=== PATIENT | male | born 1980 | race Caucasian/White ===

== ENCOUNTER 2018-07-11 05:41 | Inpatient (IN) | payer MEDICARE, OTHER ==
[2018-07-11] MEDS: SODIUM CHLORIDE 0.9% 1L BAG IV* (05:52)
[2018-07-11 06:02] LABS: ADD MAN DIFF? NO
[2018-07-11] MEDS: DOPamine-D5W 1.6 MG/ML 250 ML IV ×4 (06:07→23:41)
[2018-07-11 06:09] LABS: WHITE BLOOD COUNT 16.4 10^3/ul (4.8-10.8)
[2018-07-11 06:09] LABS: ABNORMAL IP MESSAGE 1; BASOPHIL # 0.2 10^3/ul (0.0-0.1); BASOPHILS % 0.9 % (0.0-2.0); EOSINOPHILS # 0.1 10^3/ul (0.0-0.5); EOSINOPHILS % 0.8 % (0.0-7.0); HEMATOCRIT 49.4 % (42.0-52.0); HEMOGLOBIN 14.2 g/dl (14.0-18.0); LYMPHOCYTES # 7.2 10^3/ul (0.8-2.9); LYMPHOCYTES % 43.8 % (15.0-51.0); MEAN CORPUSCULAR HEMOGLOBIN 27.6 pg (29.0-33.0); MEAN CORPUSCULAR HGB CONC 28.7 g/dl (32.0-37.0); MEAN CORPUSCULAR VOLUME 96.1 fl (82.0-101.0); MONOCYTE # 0.7 10^3/ul (0.3-0.9); NEUTROPHILS % 42.3 % (39.0-77.0); NUCLEATED RED BLOOD CELLS # 0.1 10^3/ul (0.0-0.0); NUCLEATED RED BLOOD CELLS% 0.7 /100WBC (0.0-0.0); PLATELET COUNT 191 10^3/UL (140-415); POSITIVE DIFF @See below; RED BLOOD COUNT 5.14 10^6/ul (4.70-6.10); RED CELL DISTRIBUTION WIDTH 13.6 % (11.5-14.5)
[2018-07-11] MEDS: FENTAnyl 50 MCG/ML VIAL IV (06:09)
[2018-07-11] MEDS ORDERED: VECURONIUM 100 MG in DEXTROSE 5% 100 ML IV (06:09)
[2018-07-11] MEDS: SODIUM CHLORIDE 0.9% 500 ML BAG IV* (06:09)
[2018-07-11 06:18] LABS: INR 1.55; PROTIME 18.7 Sec (11.9-14.9); PT RATIO 1.5
[2018-07-11] MEDS: VECURONIUM 10 MG VIAL IV (06:30)
[2018-07-11 06:32] LABS: Allen Test ACCEPTAB; Arterial Base Excess -25.8 mmol/L (-3.0-3); Arterial Blood Gas Oxygen Sat 98.5 mmHG (95.0-98.0); Arterial COHb 8.1 % (0.0-3.0); Arterial Fraction of Oxyhgb 90.1 % (93.0-99.0); Arterial MetHb 0.4 % (0.0-1.5); Arterial pCO2 79.8 mmhg (35-45); Blood Gas Low PEEP Setting 0 cmH2O; MODE VENT - AC; Site Right Radial
[2018-07-11 06:34] LABS: PARTIAL THROMBOPLASTIN TIME 86.9 Sec (23.0-35.0)
[2018-07-11] MEDS ORDERED: IPRATROPIUM (HFA) 12.9 GM INHALER INH (07:00)
[2018-07-11] MEDS ORDERED: ALBUTEROL HFA 8 GM INHALER INH (07:00)
[2018-07-11] MEDS ORDERED: CA CHLORIDE 10% 10 ML SYRINGE (07:00)
[2018-07-11] MEDS ORDERED: EPINEPHrine 0.1 MG/ML SYG (07:00)
[2018-07-11] MEDS ORDERED: ACETAMINOPHEN 650MG/20.3ML CUP PO (07:00)
[2018-07-11] MEDS: CEFEPIME 2GM/50 ML (PMX) 50 ML IVPB (07:19)
[2018-07-11 07:26] LABS: ADD UMIC YES; UR ASCORBIC ACID NEGATIVE (NEGATIVE); UR BACTERIA FEW /HPF (NONE SEEN); UR BILIRUBIN (Dip) NEGATIVE (NEGATIVE); UR BLOOD (Dip) 2+ mg/dL (NEGATIVE); UR CLARITY CLOUDY (CLEAR); UR COLOR YELLOW (YELLOW); UR GLUCOSE (Dip) 2+ mg/dL (NEGATIVE); UR KETONES (Dip) NEGATIVE (NEGATIVE); UR LEUKOCYTE ESTERASE (Dip) NEGATIVE Leu/ul (NEGATIVE); UR MUCUS MANY /HPF (NONE SEEN); UR NITRITE (Dip) NEGATIVE (NEGATIVE); UR RBC 76 /HPF (0-5); UR SPECIFIC GRAVITY (Dip) 1.022 (1.003-1.030); UR TOTAL PROTEIN (Dip) 3+ mg/dl (NEGATIVE); UR UROBILINOGEN (Dip) NEGATIVE (NEGATIVE); UR WBC 22 /HPF (0-5)
[2018-07-11 07:42] LABS: ANISOCYTOSIS 2+ (0-0); BAND NEUTROPHILS #M 0.9 10^3/ul (0.0-0.6); BAND NEUTROPHILS % (M) 6 % (0-4); BASOPHIL #M 0.3 10^3/ul (0.0-0.0); BASOPHILS % (M) 2 % (0-2); EOSINOPHILS % (M) 1 % (0-7); GIANT THROMBO% (M) 1 % (0-0); LYMPHOCYTES #M 2.4 10^3/ul (0.8-2.9); LYMPHOCYTES % (M) 15 % (15-51); MICROCYTOSIS 2+ (0-0); MONOCYTE #M 1.3 10^3/ul (0.3-0.9); MONOCYTES % (M) 8 % (0-11); PLATELET ESTIMATE NORMAL; POLYCHROMASIA 1+ (0-0); SEG NEUT #M 11.3 10^3/ul (1.6-7.5); SEGMENTED NEUTROPHILS (M) % 68 % (39-77); SMUDGE%M 1 % (0-0)
[2018-07-11 07:46] LABS: AMPHETAMINE/METHAMPHETAMINE Negative (NEGATIVE); BARBITURATES Negative (NEGATIVE); CANNABINOIDS Positive (NEGATIVE); COCAINE Negative (NEGATIVE)
[2018-07-11 07:47] LABS: BENZODIAZEPINES Positive (NEGATIVE); OPIATES Positive (NEGATIVE)
[2018-07-11 08:20] LABS: PLATELET COUNT 309 10^3/UL (140-415)
[2018-07-11] MEDS: VANCOMYCIN 1 GM (PMX) 250 ML IVPB (08:24)
[2018-07-11 08:30] LABS: ALANINE AMINOTRANSFERASE 373 IU/L (13-69); ALBUMIN 3.4 g/dl (3.3-4.9); ALBUMIN/GLOBULIN RATIO 1.36; ALKALINE PHOSPHATASE 71 IU/L (42-121); ANION GAP 21 (5-13); ASPARTATE AMINO TRANSFERASE 297 IU/L (15-46); BILIRUBIN,INDIRECT 0.2 mg/dl (0-1.1); BILIRUBIN,TOTAL 0.2 mg/dl (0.2-1.3); BLOOD UREA NITROGEN 14 mg/dl (7-20); CALCIUM 9.3 mg/dl (8.4-10.2); CARBON DIOXIDE 17 mmol/L (21-31); CHLORIDE 107 mmol/L (97-110); Estimated GFR 43 mL/min (>60); GLUCOSE 390 mg/dl (70-220); LIPASE 1085 U/L (23-300); MAGNESIUM 3.3 mg/dl (1.7-2.5); SODIUM 145 mmol/L (135-144); TOTAL PROTEIN 5.9 g/dl (6.1-8.1); TROPONIN-I 0.061 ng/ml (0.000-0.120)
[2018-07-11 08:32] LABS: LACTIC ACID 14.9 mmol/L (0.5-2.0)
[2018-07-11 08:34] LABS: ETHANOL < 10.0 mg/dl (0-0); POTASSIUM 6.1 mmol/L (3.5-5.1)
[2018-07-11 08:39] LABS: CREATINE KINASE 588 IU/L (23-200)
[2018-07-11 08:42] LABS: INR 1.56; PROTIME 18.8 Sec (11.9-14.9); PT RATIO 1.5
[2018-07-11 08:44] LABS: THROMBIN TIME 28.4 SEC (13.8-19.1)
[2018-07-11] MEDS: MIDAZOLAM (DRIP) 50 mg/50 mL 50 ML IV ×3 (08:44→17:23)
[2018-07-11 08:46] LABS: ACETAMINOPHEN < 10.0 ug/ml (10.0-30.0)
[2018-07-11 08:46] LABS: SALICYLATE < 1.0 mg/dl (5.0-30.0)
[2018-07-11 08:49] LABS: PARTIAL THROMBOPLASTIN TIME 81.3 Sec (23.0-35.0)
[2018-07-11 08:51] LABS: CK INDEX 1.8
[2018-07-11 08:55] LABS: TROPONIN-I 0.261 ng/ml (0.000-0.120)
[2018-07-11] MEDS: SODIUM BICARBONATE (IV ADD) 150 MEQ in DEXTROSE 5% 1,000 ML IV ×3 (09:12→19:21)
[2018-07-11] MEDS: ACCU-CHEK XX ×15 (10:00→23:56)
[2018-07-11] MEDS ORDERED: DEXTROSE 50% 50 ML SYRINGE IV ×2 (10:00)
[2018-07-11 10:06] LABS: D-DIMER > 10000.00 ng/ml (<460)
[2018-07-11 10:10] LABS: AMYLASE 583 U/L (11-123)
[2018-07-11 10:31] LABS: LACTIC ACID 4.9 mmol/L (0.5-2.0)
[2018-07-11 11:37] LABS: Allen Test ACCEPTAB; Arterial Blood Gas Oxygen Sat 91.9 mmHG (95.0-98.0); Arterial COHb 1.4 % (0.0-3.0); Arterial Fraction of Oxyhgb 90.2 % (93.0-99.0); Arterial HCO3 19.7 mmol/L (22.0-26.0); Arterial MetHb 0.5 % (0.0-1.5); Arterial pCO2 39.5 mmhg (35-45); MODE VENT - AC; Site Right Radial; Temperature 34.7 C
[2018-07-11] MEDS: PANTOPRAZOLE 40 MG INJ IV (11:40)
[2018-07-11] MEDS: INSULIN HUMAN REGULAR 100 UNIT in SOD CHLORIDE 0.9% 99 ML IV (12:14)
[2018-07-11 13:32] LABS: ABNORMAL IP MESSAGE 1; HEMATOCRIT 51.5 % (42.0-52.0); HEMOGLOBIN 16.7 g/dl (14.0-18.0); MEAN CORPUSCULAR HEMOGLOBIN 27.7 pg (29.0-33.0); MEAN CORPUSCULAR HGB CONC 32.4 g/dl (32.0-37.0); MEAN CORPUSCULAR VOLUME 85.4 fl (82.0-101.0); NUCLEATED RED BLOOD CELLS% 0.4 /100WBC (0.0-0.0); PLATELET COUNT 276 10^3/UL (140-415); POSITIVE DIFF @See below; RED BLOOD COUNT 6.03 10^6/ul (4.70-6.10); RED CELL DISTRIBUTION WIDTH 13.5 % (11.5-14.5)
[2018-07-11 13:32] LABS: WHITE BLOOD COUNT 35.1 10^3/ul (4.8-10.8)
[2018-07-11 13:34] LABS: ADD MAN DIFF? YES
[2018-07-11 13:45] LABS: ADD UMIC YES; UR ASCORBIC ACID NEGATIVE (NEGATIVE); UR BACTERIA FEW /HPF (NONE SEEN); UR BILIRUBIN (Dip) NEGATIVE (NEGATIVE); UR BLOOD (Dip) 3+ mg/dL (NEGATIVE); UR BUDDING YEAST FEW /HPF (NONE SEEN); UR CLARITY CLEAR (CLEAR); UR COLOR STRAW (YELLOW); UR GLUCOSE (Dip) 1+ mg/dL (NEGATIVE); UR KETONES (Dip) NEGATIVE (NEGATIVE); UR LEUKOCYTE ESTERASE (Dip) NEGATIVE Leu/ul (NEGATIVE); UR NITRITE (Dip) NEGATIVE (NEGATIVE); UR RBC 2 /HPF (0-5); UR SPECIFIC GRAVITY (Dip) 1.003 (1.003-1.030); UR TOTAL PROTEIN (Dip) 1+ mg/dl (NEGATIVE); UR UROBILINOGEN (Dip) NEGATIVE (NEGATIVE); UR WBC 3 /HPF (0-5)
[2018-07-11 13:56] LABS: CREATININE,URINE RANDOM 17.81 mg/dl (20-370)
[2018-07-11] MEDS ORDERED: POTASSIUM CHLORIDE 50 ML IVPB (14:00)
[2018-07-11 14:02] LABS: SODIUM,URINE RANDOM < 13 mmol/L (30-90)
[2018-07-11 14:08] LABS: LACTIC ACID 4.1 mmol/L (0.5-2.0)
[2018-07-11 14:09] LABS: ALANINE AMINOTRANSFERASE 813 IU/L (13-69); ALBUMIN 3.7 g/dl (3.3-4.9); ALBUMIN/GLOBULIN RATIO 1.27; ALKALINE PHOSPHATASE 138 IU/L (42-121); ANION GAP 11 (5-13); ASPARTATE AMINO TRANSFERASE 745 IU/L (15-46); BILIRUBIN,INDIRECT 0.7 mg/dl (0-1.1); BILIRUBIN,TOTAL 0.7 mg/dl (0.2-1.3); BLOOD UREA NITROGEN 24 mg/dl (7-20); CARBON DIOXIDE 20 mmol/L (21-31); CHLORIDE 113 mmol/L (97-110); Estimated GFR 43 mL/min (>60); GLUCOSE 141 mg/dl (70-220); POTASSIUM 4.1 mmol/L (3.5-5.1); SODIUM 144 mmol/L (135-144); TOTAL PROTEIN 6.6 g/dl (6.1-8.1)
[2018-07-11 14:17] LABS: ANISOCYTOSIS 2+ (0-0); BAND NEUTROPHILS #M 3.5 10^3/ul (0.0-0.6); BAND NEUTROPHILS % (M) 10 % (0-4); ERYTHROBLAST% (NRBC) (M) 3 % (0-0); LYMPHOCYTES #M 0.7 10^3/ul (0.8-2.9); LYMPHOCYTES % (M) 2 % (15-51); MICROCYTOSIS 2+ (0-0); PLATELET ESTIMATE NORMAL; POIKILOCYTOSIS 1+ (0-0); POLYCHROMASIA 1+ (0-0); SEG NEUT #M 32.1 10^3/ul (1.6-7.5); SEGMENTED NEUTROPHILS (M) % 88 % (39-77); SMUDGE%M 1 % (0-0); SPHEROCYTES 1+ (0-0)
[2018-07-11] MEDS: PIPER-TAZO 3.375 GM IV (PMX) 100 ML IVPB ×4 (14:39→23:59)
[2018-07-11 14:50] LABS: PHOSPHORUS 2.6 mg/dl (2.5-4.9)
[2018-07-11 14:50] LABS: MAGNESIUM 2.4 mg/dl (1.7-2.5)
[2018-07-11 14:52] LABS: CK INDEX 1.9; CREATINE KINASE 2808 IU/L (23-200)
[2018-07-11] MEDS: OCULAR LUBRICANT 3.5 GM OPH OINT BOTH EYES ×2 (14:54→20:42)
[2018-07-11] MEDS: ARTIFICIAL TEARS 15 ML OPH BOTH EYES ×2 (14:54→20:42)
[2018-07-11] MEDS: NORepinephrine 32 MG in DEXTROSE 5% 218 ML IV (18:12)
[2018-07-11 18:26] LABS: ADD MAN DIFF? NO
[2018-07-11 18:28] LABS: WHITE BLOOD COUNT 20.3 10^3/ul (4.8-10.8)
[2018-07-11 18:28] LABS: BASOPHIL # 0.1 10^3/ul (0.0-0.1); BASOPHILS % 0.3 % (0.0-2.0); EOSINOPHILS # 0.1 10^3/ul (0.0-0.5); EOSINOPHILS % 0.2 % (0.0-7.0); HEMATOCRIT 52.1 % (42.0-52.0); HEMOGLOBIN 17.2 g/dl (14.0-18.0); LYMPHOCYTES # 1.7 10^3/ul (0.8-2.9); LYMPHOCYTES % 8.5 % (15.0-51.0); MEAN CORPUSCULAR HEMOGLOBIN 27.5 pg (29.0-33.0); MEAN CORPUSCULAR VOLUME 83.4 fl (82.0-101.0); MONOCYTE # 0.4 10^3/ul (0.3-0.9); MONOCYTES % 1.8 % (0.0-11.0); NEUTROPHIL # 17.8 10^3/ul (1.6-7.5); NEUTROPHILS % 87.9 % (39.0-77.0); NUCLEATED RED BLOOD CELLS # 0.1 10^3/ul (0.0-0.0); NUCLEATED RED BLOOD CELLS% 0.3 /100WBC (0.0-0.0); PLATELET COUNT 266 10^3/UL (140-415); RED BLOOD COUNT 6.25 10^6/ul (4.70-6.10); RED CELL DISTRIBUTION WIDTH 13.5 % (11.5-14.5)
[2018-07-11 18:45] LABS: LIPASE 1136 U/L (23-300); MAGNESIUM 1.9 mg/dl (1.7-2.5)
[2018-07-11 18:45] LABS: PHOSPHORUS 2.4 mg/dl (2.5-4.9)
[2018-07-11 18:47] LABS: INR 1.32; PROTIME 16.5 Sec (11.9-14.9); PT RATIO 1.3
[2018-07-11 18:48] LABS: PARTIAL THROMBOPLASTIN TIME 34.5 Sec (23.0-35.0)
[2018-07-11 18:52] LABS: LACTIC ACID 2.7 mmol/L (0.5-2.0)
[2018-07-11 19:25] LABS: AMYLASE 2929 U/L (11-123)
[2018-07-11] MEDS: MAGNESIUM SULFATE 2 GM/50 ML 50 ML IVPB (19:59)
[2018-07-11 20:00] LABS: AADO2 Arterial 414.3 mmHg (7.0-24.0); Allen Test ACCEPTAB; Arterial Base Excess -3.4 mmol/L (-3.0-3); Arterial Blood Gas Oxygen Sat 99.2 mmHG (95.0-98.0); Arterial COHb 0.3 % (0.0-3.0); Arterial Fraction of Oxyhgb 98.3 % (93.0-99.0); Arterial HCO3 20.9 mmol/L (22.0-26.0); Arterial MetHb 0.6 % (0.0-1.5); Arterial pCO2 34.8 mmhg (35-45); MODE VENT - AC; Site Left Radial; Temperature 36.3 C
[2018-07-11 20:45] LABS: CREATINE KINASE 4615 IU/L (23-200)
[2018-07-12 00:01] LABS: AADO2 Arterial 148.3 mmHg (7.0-24.0); Allen Test ACCEPTAB; Arterial Base Excess -2.6 mmol/L (-3.0-3); Arterial Blood Gas Oxygen Sat 98.1 mmHG (95.0-98.0); Arterial COHb 0.3 % (0.0-3.0); Arterial Fraction of Oxyhgb 97.3 % (93.0-99.0); Arterial HCO3 19.8 mmol/L (22.0-26.0); Arterial MetHb 0.5 % (0.0-1.5); Arterial pCO2 28.5 mmhg (35-45); MODE VENT - AC; Site Left Radial; Temperature 36.2 C
[2018-07-12 00:31] LABS: ADD MAN DIFF? NO
[2018-07-12 00:37] LABS: WHITE BLOOD COUNT 16.7 10^3/ul (4.8-10.8)
[2018-07-12 00:37] LABS: BASOPHIL # 0.1 10^3/ul (0.0-0.1); BASOPHILS % 0.3 % (0.0-2.0); EOSINOPHILS % 0.2 % (0.0-7.0); HEMATOCRIT 50.2 % (42.0-52.0); HEMOGLOBIN 16.8 g/dl (14.0-18.0); LYMPHOCYTES # 1.3 10^3/ul (0.8-2.9); LYMPHOCYTES % 7.5 % (15.0-51.0); MEAN CORPUSCULAR HEMOGLOBIN 27.6 pg (29.0-33.0); MEAN CORPUSCULAR HGB CONC 33.5 g/dl (32.0-37.0); MEAN CORPUSCULAR VOLUME 82.4 fl (82.0-101.0); MEAN PLATELET VOLUME 9.6 fl (7.4-10.4); MONOCYTE # 0.6 10^3/ul (0.3-0.9); MONOCYTES % 3.4 % (0.0-11.0); NEUTROPHIL # 14.8 10^3/ul (1.6-7.5); NEUTROPHILS % 88.1 % (39.0-77.0); NUCLEATED RED BLOOD CELLS% 0.2 /100WBC (0.0-0.0); PLATELET COUNT 261 10^3/UL (140-415); RED BLOOD COUNT 6.09 10^6/ul (4.70-6.10); RED CELL DISTRIBUTION WIDTH 13.5 % (11.5-14.5)
[2018-07-12 01:17] LABS: PHOSPHORUS 1.5 mg/dl (2.5-4.9)
[2018-07-12 01:17] LABS: MAGNESIUM 2.7 mg/dl (1.7-2.5)
[2018-07-12 01:46] LABS: CK INDEX 1.7; CREATINE KINASE 5919 IU/L (23-200)
[2018-07-12] MEDS: ACCU-CHEK XX ×24 (01:56→23:48)
[2018-07-12] MEDS: ARTIFICIAL TEARS 15 ML OPH BOTH EYES ×4 (02:46→21:13)
[2018-07-12] MEDS: OCULAR LUBRICANT 3.5 GM OPH OINT BOTH EYES ×4 (02:46→21:13)
[2018-07-12 03:18] LABS: ANION GAP 9 (5-13); BLOOD UREA NITROGEN 29 mg/dl (7-20); CALCIUM 8.8 mg/dl (8.4-10.2); CARBON DIOXIDE 22 mmol/L (21-31); CHLORIDE 114 mmol/L (97-110); Estimated GFR 31 mL/min (>60); GLUCOSE 115 mg/dl (70-220); POTASSIUM 3.7 mmol/L (3.5-5.1); SODIUM 145 mmol/L (135-144)
[2018-07-12 05:25] LABS: ADD MAN DIFF? NO
[2018-07-12 05:37] LABS: WHITE BLOOD COUNT 15.9 10^3/ul (4.8-10.8)
[2018-07-12 05:37] LABS: BASOPHIL # 0.1 10^3/ul (0.0-0.1); BASOPHILS % 0.3 % (0.0-2.0); EOSINOPHILS # 0.1 10^3/ul (0.0-0.5); EOSINOPHILS % 0.3 % (0.0-7.0); HEMATOCRIT 51.5 % (42.0-52.0); HEMOGLOBIN 17.6 g/dl (14.0-18.0); LYMPHOCYTES # 1.8 10^3/ul (0.8-2.9); LYMPHOCYTES % 11.1 % (15.0-51.0); MEAN CORPUSCULAR HEMOGLOBIN 27.7 pg (29.0-33.0); MEAN CORPUSCULAR HGB CONC 34.2 g/dl (32.0-37.0); MEAN CORPUSCULAR VOLUME 81.1 fl (82.0-101.0); MEAN PLATELET VOLUME 9.6 fl (7.4-10.4); MONOCYTE # 0.6 10^3/ul (0.3-0.9); MONOCYTES % 3.5 % (0.0-11.0); NEUTROPHIL # 13.5 10^3/ul (1.6-7.5); NEUTROPHILS % 84.5 % (39.0-77.0); NUCLEATED RED BLOOD CELLS% 0.2 /100WBC (0.0-0.0); PLATELET COUNT 222 10^3/UL (140-415); POSITIVE DIFF @See below; RED BLOOD COUNT 6.35 10^6/ul (4.70-6.10); RED CELL DISTRIBUTION WIDTH 13.2 % (11.5-14.5)
[2018-07-12] MEDS: PANTOPRAZOLE 40 MG INJ IV (05:46)
[2018-07-12] MEDS: PIPER-TAZO 3.375 GM IV (PMX) 100 ML IVPB ×4 (05:47→23:46)
[2018-07-12 05:50] LABS: INR 1.32; PARTIAL THROMBOPLASTIN TIME 33.9 Sec (23.0-35.0); PROTIME 16.5 Sec (11.9-14.9); PT RATIO 1.3
[2018-07-12 05:52] LABS: LIPASE 286 U/L (23-300)
[2018-07-12 05:53] LABS: ANION GAP 9 (5-13); BLOOD UREA NITROGEN 30 mg/dl (7-20); CALCIUM 8.9 mg/dl (8.4-10.2); CARBON DIOXIDE 24 mmol/L (21-31); CHLORIDE 115 mmol/L (97-110); CREATININE 2.55 mg/dl (0.61-1.24); Estimated GFR 29 mL/min (>60); GLUCOSE 117 mg/dl (70-220); MAGNESIUM 2.8 mg/dl (1.7-2.5); PHOSPHORUS 1.2 mg/dl (2.5-4.9); POTASSIUM 3.1 mmol/L (3.5-5.1); SODIUM 148 mmol/L (135-144)
[2018-07-12 05:54] LABS: AADO2 Arterial 148.3 mmHg (7.0-24.0); Allen Test ACCEPTAB; Arterial Blood Gas Oxygen Sat 98.5 mmHG (95.0-98.0); Arterial COHb 0.3 % (0.0-3.0); Arterial Fraction of Oxyhgb 97.6 % (93.0-99.0); Arterial HCO3 21.5 mmol/L (22.0-26.0); Arterial MetHb 0.6 % (0.0-1.5); Arterial pCO2 24.8 mmhg (35-45); MODE VENT - AC; Site Left Radial
[2018-07-12 06:01] LABS: AMYLASE 1641 U/L (11-123)
[2018-07-12 06:06] LABS: LACTIC ACID 3.2 mmol/L (0.5-2.0)
[2018-07-12] MEDS: SODIUM BICARBONATE (IV ADD) 150 MEQ in DEXTROSE 5% 1,000 ML IV (06:20)
[2018-07-12] MEDS ORDERED: D5W-0.45 NACL + KCL 10 MEQ 1,000 ML IV (07:00)
[2018-07-12] MEDS: DOPamine-D5W 1.6 MG/ML 250 ML IV ×3 (08:21→23:09)
[2018-07-12] MEDS: D5W-0.45 NACL + KCL 10 MEQ 1,000 ML IV ×3 (08:24→21:18)
[2018-07-12 10:17] LABS: ANISOCYTOSIS 1+ (0-0); BAND NEUTROPHILS #M 4.1 10^3/ul (0.0-0.6); BAND NEUTROPHILS % (M) 26 % (0-4); BASOPHIL #M 0.1 10^3/ul (0.0-0.0); BASOPHILS % (M) 1 % (0-2); BURR CELLS 1+ (0-0); EOSINOPHILS % (M) 1 % (0-7); ERYTHROBLAST% (NRBC) (M) 1 % (0-0); GIANT THROMBO% (M) 1 % (0-0); HYPOCHROMASIA 1+ (0-0); LYMPHOCYTES #M 1.1 10^3/ul (0.8-2.9); LYMPHOCYTES % (M) 7 % (15-51); MICROCYTOSIS 1+ (0-0); MONOCYTE #M 0.6 10^3/ul (0.3-0.9); MONOCYTES % (M) 4 % (0-11); PLASMA CELLS #M 0.1 10^3/ul (0.0-0.0); PLASMAC%(M) 1 % (0); PLATELET ESTIMATE NORMAL; POIKILOCYTOSIS 1+ (0-0); POLYCHROMASIA 1+ (0-0); SEG NEUT #M 10.2 10^3/ul (1.6-7.5); SEGMENTED NEUTROPHILS (M) % 60 % (39-77); SMUDGE%M 3 % (0-0)
[2018-07-12] MEDS: POTASSIUM PHOSPHATE 30 MM in SOD CHLORIDE 0.9% 250 ML IVPB ×2 (11:02→17:11)
[2018-07-12 12:13] LABS: AADO2 Arterial 133.2 mmHg (7.0-24.0); Allen Test ACCEPTAB; Arterial Base Excess -2.1 mmol/L (-3.0-3); Arterial Blood Gas Oxygen Sat 97.7 mmHG (95.0-98.0); Arterial COHb 0.3 % (0.0-3.0); Arterial Fraction of Oxyhgb 96.9 % (93.0-99.0); Arterial HCO3 22.4 mmol/L (22.0-26.0); Arterial MetHb 0.5 % (0.0-1.5); Arterial pCO2 36.3 mmhg (35-45); MODE VENT - AC; Site Right Radial
[2018-07-12 12:30] LABS: ADD MAN DIFF? NO
[2018-07-12 12:38] LABS: WHITE BLOOD COUNT 15.7 10^3/ul (4.8-10.8)
[2018-07-12 12:38] LABS: BASOPHIL # 0.1 10^3/ul (0.0-0.1); BASOPHILS % 0.6 % (0.0-2.0); EOSINOPHILS # 0.2 10^3/ul (0.0-0.5); EOSINOPHILS % 1.5 % (0.0-7.0); HEMATOCRIT 48.7 % (42.0-52.0); HEMOGLOBIN 16.3 g/dl (14.0-18.0); LYMPHOCYTES # 1.8 10^3/ul (0.8-2.9); LYMPHOCYTES % 11.3 % (15.0-51.0); MEAN CORPUSCULAR HEMOGLOBIN 27.5 pg (29.0-33.0); MEAN CORPUSCULAR HGB CONC 33.5 g/dl (32.0-37.0); MEAN CORPUSCULAR VOLUME 82.3 fl (82.0-101.0); MEAN PLATELET VOLUME 10.2 fl (7.4-10.4); MONOCYTE # 0.4 10^3/ul (0.3-0.9); MONOCYTES % 2.4 % (0.0-11.0); NEUTROPHIL # 13.1 10^3/ul (1.6-7.5); NEUTROPHILS % 83.8 % (39.0-77.0); NUCLEATED RED BLOOD CELLS% 0.1 /100WBC (0.0-0.0); PLATELET COUNT 192 10^3/UL (140-415); RED BLOOD COUNT 5.92 10^6/ul (4.70-6.10); RED CELL DISTRIBUTION WIDTH 13.5 % (11.5-14.5)
[2018-07-12 12:49] LABS: PHOSPHORUS 2.4 mg/dl (2.5-4.9)
[2018-07-12 14:47] LABS: ANION GAP 16 (5-13); BLOOD UREA NITROGEN 26 mg/dl (7-20); CALCIUM 6.3 mg/dl (8.4-10.2); CARBON DIOXIDE 20 mmol/L (21-31); CHLORIDE 118 mmol/L (97-110); CREATININE 2.22 mg/dl (0.61-1.24); Estimated GFR 34 mL/min (>60); GLUCOSE 131 mg/dl (70-220); SODIUM 154 mmol/L (135-144)
[2018-07-12 14:53] LABS: POTASSIUM 2.4 mmol/L (3.5-5.1)
[2018-07-12] MEDS: POTASSIUM CHLORIDE 100 ML IVPB ×3 (15:32→21:13)
[2018-07-12] MEDS: PHENYLephrine 80 MG in DEXTROSE 5% 242 ML IV (22:12)
[2018-07-12] MEDS: VASOPRESSIN 60 UNIT in DEXTROSE 5% 57 ML IV (23:19)
[2018-07-13] MEDS: POTASSIUM CHLORIDE 100 ML IVPB (00:36)
[2018-07-13] MEDS: ACCU-CHEK XX ×24 (00:37→23:54)
[2018-07-13] MEDS: PHENYLephrine 80 MG in DEXTROSE 5% 242 ML IV ×4 (02:58→21:30)
[2018-07-13] MEDS: OCULAR LUBRICANT 3.5 GM OPH OINT BOTH EYES ×4 (03:09→21:30)
[2018-07-13] MEDS: ARTIFICIAL TEARS 15 ML OPH BOTH EYES ×4 (03:09→21:30)
[2018-07-13] MEDS: D5W-0.45 NACL + KCL 10 MEQ 1,000 ML IV ×3 (03:58→17:28)
[2018-07-13] MEDS: NORepinephrine 32 MG in DEXTROSE 5% 218 ML IV (04:28)
[2018-07-13 05:42] LABS: WHITE BLOOD COUNT 17.8 10^3/ul (4.8-10.8)
[2018-07-13 05:42] LABS: HEMATOCRIT 46.5 % (42.0-52.0); MEAN CORPUSCULAR HEMOGLOBIN 27.4 pg (29.0-33.0); MEAN CORPUSCULAR HGB CONC 32.3 g/dl (32.0-37.0); MEAN PLATELET VOLUME 9.8 fl (7.4-10.4); NUCLEATED RED BLOOD CELLS% 0.2 /100WBC (0.0-0.0); PLATELET COUNT 143 10^3/UL (140-415); POSITIVE DIFF @See below; RED BLOOD COUNT 5.47 10^6/ul (4.70-6.10); RED CELL DISTRIBUTION WIDTH 14.2 % (11.5-14.5)
[2018-07-13 05:55] LABS: ADD MAN DIFF? YES
[2018-07-13] MEDS: PANTOPRAZOLE 40 MG INJ IV (06:08)
[2018-07-13] MEDS: PIPER-TAZO 3.375 GM IV (PMX) 100 ML IVPB ×2 (06:09→11:57)
[2018-07-13 06:10] LABS: ANION GAP 6 (5-13); BLOOD UREA NITROGEN 29 mg/dl (7-20); CALCIUM 7.3 mg/dl (8.4-10.2); CARBON DIOXIDE 23 mmol/L (21-31); CHLORIDE 122 mmol/L (97-110); CREATININE 3.23 mg/dl (0.61-1.24); Estimated GFR 22 mL/min (>60); GLUCOSE 129 mg/dl (70-220); MAGNESIUM 2.1 mg/dl (1.7-2.5); PHOSPHORUS 3.9 mg/dl (2.5-4.9); POTASSIUM 3.5 mmol/L (3.5-5.1); SODIUM 151 mmol/L (135-144)
[2018-07-13 07:37] LABS: OSMOLALITY,URINE 154 mOsm/kg (250-1200)
[2018-07-13 07:42] LABS: ANISOCYTOSIS 1+ (0-0); BAND NEUTROPHILS #M 6.5 10^3/ul (0.0-0.6); BAND NEUTROPHILS % (M) 37 % (0-4); BURR CELLS 2+ (0-0); EOSINOPHILS % (M) 3 % (0-7); GIANT THROMBO% (M) 1 % (0-0); LYMPHOCYTES #M 0.8 10^3/ul (0.8-2.9); LYMPHOCYTES % (M) 5 % (15-51); METAMYELOCYTES #M 0.3 10^3/ul (0.0-0.0); METAMYELOCYTES %M 2 % (0-0); MONOCYTE #M 0.7 10^3/ul (0.3-0.9); MONOCYTES % (M) 4 % (0-11); MYELOCYTES #M 0.3 10^3/ul (0.0-0.0); MYELOCYTES % (M) 2 % (0-0); PLATELET ESTIMATE NORMAL; POIKILOCYTOSIS 2+ (0-0); SEG NEUT #M 9.7 10^3/ul (1.6-7.5); SEGMENTED NEUTROPHILS (M) % 48 % (39-77); SMUDGE%M 35 % (0-0)
[2018-07-13] MEDS: VASOPRESSIN 60 UNIT in DEXTROSE 5% 57 ML IV ×2 (10:30→22:30)
[2018-07-13] MEDS: PIPER-TAZO 2.25 GM/NS 50 ML IVPB ×2 (17:43→23:51)
[2018-07-14] MEDS: D5W-0.45 NACL + KCL 10 MEQ 1,000 ML IV ×3 (00:28→19:29)
[2018-07-14] MEDS: ACCU-CHEK XX ×23 (00:32→22:54)
[2018-07-14] MEDS: ARTIFICIAL TEARS 15 ML OPH BOTH EYES ×4 (03:10→20:37)
[2018-07-14] MEDS: OCULAR LUBRICANT 3.5 GM OPH OINT BOTH EYES ×4 (03:10→20:37)
[2018-07-14] MEDS: PHENYLephrine 80 MG in DEXTROSE 5% 242 ML IV ×3 (04:28→19:38)
[2018-07-14 05:30] LABS: HEMATOCRIT 41.9 % (42.0-52.0); HEMOGLOBIN 13.5 g/dl (14.0-18.0); MEAN CORPUSCULAR HEMOGLOBIN 27.7 pg (29.0-33.0); MEAN CORPUSCULAR HGB CONC 32.2 g/dl (32.0-37.0); MEAN PLATELET VOLUME 10.8 fl (7.4-10.4); PLATELET COUNT 111 10^3/UL (140-415); POSITIVE DIFF @See below; RED BLOOD COUNT 4.87 10^6/ul (4.70-6.10); RED CELL DISTRIBUTION WIDTH 14.6 % (11.5-14.5)
[2018-07-14 05:30] LABS: WHITE BLOOD COUNT 15.7 10^3/ul (4.8-10.8)
[2018-07-14] MEDS: PIPER-TAZO 2.25 GM/NS 50 ML IVPB ×3 (05:42→20:36)
[2018-07-14] MEDS: PANTOPRAZOLE 40 MG INJ IV (05:42)
[2018-07-14 05:44] LABS: ADD MAN DIFF? YES
[2018-07-14 06:41] LABS: ANION GAP 5 (5-13); BLOOD UREA NITROGEN 19 mg/dl (7-20); CALCIUM 7.5 mg/dl (8.4-10.2); CARBON DIOXIDE 22 mmol/L (21-31); CHLORIDE 124 mmol/L (97-110); CREATININE 3.17 mg/dl (0.61-1.24); Estimated GFR 22 mL/min (>60); GLUCOSE 108 mg/dl (70-220); MAGNESIUM 1.9 mg/dl (1.7-2.5); PHOSPHORUS 3.6 mg/dl (2.5-4.9); POTASSIUM 3.5 mmol/L (3.5-5.1); SODIUM 151 mmol/L (135-144)
[2018-07-14 06:51] LABS: LACTIC ACID 1.7 mmol/L (0.5-2.0)
[2018-07-14] MEDS: DESMOPRESSIN 4 MCG INJ IV ×2 (09:00→20:36)
[2018-07-14 10:07] LABS: ANISOCYTOSIS 1+ (0-0); BAND NEUTROPHILS % (M) 26 % (0-4); BASOPHIL #M 0.1 10^3/ul (0.0-0.0); BASOPHILS % (M) 1 % (0-2); BURR CELLS 1+ (0-0); EOSINOPHILS % (M) 2 % (0-7); ERYTHROBLAST% (NRBC) (M) 1 % (0-0); LYMPHOCYTES % (M) 13 % (15-51); MONOCYTE #M 0.1 10^3/ul (0.3-0.9); MONOCYTES % (M) 1 % (0-11); MYELOCYTES #M 0.1 10^3/ul (0.0-0.0); MYELOCYTES % (M) 1 % (0-0); PLATELET ESTIMATE DECREASED; POIKILOCYTOSIS 1+ (0-0); SEG NEUT #M 9.4 10^3/ul (1.6-7.5); SEGMENTED NEUTROPHILS (M) % 56 % (39-77); SMUDGE%M 87 % (0-0)
[2018-07-14] MEDS: VASOPRESSIN 60 UNIT in DEXTROSE 5% 57 ML IV ×2 (10:30→22:30)
[2018-07-14 11:43] LABS: HEMOGLOBIN A1C 5.5 % (0-5.9)
[2018-07-14] MEDS: NORepinephrine 32 MG in DEXTROSE 5% 218 ML IV (11:51)
[2018-07-14 14:34] LABS: ANION GAP 4 (5-13); BLOOD UREA NITROGEN 18 mg/dl (7-20); CALCIUM 8.1 mg/dl (8.4-10.2); CARBON DIOXIDE 22 mmol/L (21-31); CHLORIDE 128 mmol/L (97-110); Estimated GFR 23 mL/min (>60); GLUCOSE 128 mg/dl (70-220); POTASSIUM 3.3 mmol/L (3.5-5.1); SODIUM 154 mmol/L (135-144)
[2018-07-14 14:42] LABS: CREATININE, RANDOM URINE 20 mg/dL (20-320); MICROALBUMIN 14.1 mg/dL; MICROALBUMIN/CREATININE RATIO 705 (<30)
[2018-07-14 15:33] LABS: AADO2 Arterial 66.4 mmHg (7.0-24.0); Allen Test ACCEPTAB; Arterial Base Excess -6.9 mmol/L (-3.0-3); Arterial Blood Gas Oxygen Sat 97.6 mmHG (95.0-98.0); Arterial COHb 0.1 % (0.0-3.0); Arterial HCO3 18.4 mmol/L (22.0-26.0); Arterial MetHb 0.5 % (0.0-1.5); Arterial pCO2 36.8 mmhg (35-45); MODE VENT - AC; Site Left Radial
[2018-07-14 17:42] LABS: AADO2 Arterial 330.5 mmHg (7.0-24.0); Allen Test ACCEPTAB; Arterial Base Excess -8.4 mmol/L (-3.0-3); Arterial Blood Gas Oxygen Sat 99.4 mmHG (95.0-98.0); Arterial COHb 0.1 % (0.0-3.0); Arterial Fraction of Oxyhgb 98.6 % (93.0-99.0); Arterial HCO3 18.8 mmol/L (22.0-26.0); Arterial MetHb 0.7 % (0.0-1.5); Arterial pCO2 44.5 mmhg (35-45); MODE VENT - AC; Site Left Radial
[2018-07-15] MEDS: D5W-0.45 NACL + KCL 10 MEQ 1,000 ML IV ×4 (00:31→19:51)
[2018-07-15] MEDS: PIPER-TAZO 2.25 GM/NS 50 ML IVPB ×4 (00:32→18:45)
[2018-07-15] MEDS: ACCU-CHEK XX ×22 (01:40→23:30)
[2018-07-15] MEDS: OCULAR LUBRICANT 3.5 GM OPH OINT BOTH EYES ×2 (03:16→07:57)
[2018-07-15] MEDS: ARTIFICIAL TEARS 15 ML OPH BOTH EYES ×2 (03:16→07:57)
[2018-07-15] MEDS: PHENYLephrine 80 MG in DEXTROSE 5% 242 ML IV ×2 (04:42→19:21)
[2018-07-15] MEDS: INSULIN HUMAN REGULAR 100 UNIT in SOD CHLORIDE 0.9% 99 ML IV (04:47)
[2018-07-15 04:58] LABS: ADD MAN DIFF? NO
[2018-07-15 05:34] LABS: WHITE BLOOD COUNT 12.7 10^3/ul (4.8-10.8)
[2018-07-15 05:34] LABS: BASOPHIL # 0.1 10^3/ul (0.0-0.1); BASOPHILS % 0.4 % (0.0-2.0); EOSINOPHILS # 0.4 10^3/ul (0.0-0.5); EOSINOPHILS % 3.3 % (0.0-7.0); HEMATOCRIT 41.8 % (42.0-52.0); HEMOGLOBIN 13.2 g/dl (14.0-18.0); LYMPHOCYTES # 1.1 10^3/ul (0.8-2.9); LYMPHOCYTES % 8.4 % (15.0-51.0); MEAN CORPUSCULAR HEMOGLOBIN 27.6 pg (29.0-33.0); MEAN CORPUSCULAR HGB CONC 31.6 g/dl (32.0-37.0); MEAN CORPUSCULAR VOLUME 87.3 fl (82.0-101.0); MEAN PLATELET VOLUME 10.8 fl (7.4-10.4); MONOCYTE # 0.6 10^3/ul (0.3-0.9); NEUTROPHIL # 10.5 10^3/ul (1.6-7.5); NEUTROPHILS % 82.4 % (39.0-77.0); PLATELET COUNT 102 10^3/UL (140-415); RED BLOOD COUNT 4.79 10^6/ul (4.70-6.10); RED CELL DISTRIBUTION WIDTH 14.7 % (11.5-14.5)
[2018-07-15 06:07] LABS: ANION GAP 5 (5-13); BLOOD UREA NITROGEN 21 mg/dl (7-20); CALCIUM 8.4 mg/dl (8.4-10.2); CARBON DIOXIDE 20 mmol/L (21-31); CHLORIDE 130 mmol/L (97-110); CREATININE 3.09 mg/dl (0.61-1.24); Estimated GFR 23 mL/min (>60); GLUCOSE 141 mg/dl (70-220); PHOSPHORUS 2.4 mg/dl (2.5-4.9); SODIUM 155 mmol/L (135-144)
[2018-07-15 06:10] LABS: POTASSIUM 2.3 mmol/L (3.5-5.1)
[2018-07-15] MEDS: PANTOPRAZOLE 40 MG INJ IV (06:16)
[2018-07-15] MEDS: POTASSIUM CHLORIDE 50 ML IVPB ×3 (07:06→12:56)
[2018-07-15] MEDS: POTASSIUM CHLORIDE 20 MEQ POWDER FOR ORAL SOLN NGT (07:06)
[2018-07-15] MEDS: VASOPRESSIN 60 UNIT in DEXTROSE 5% 57 ML IV ×2 (07:38→22:30)
[2018-07-15] MEDS: DESMOPRESSIN 4 MCG INJ IV ×2 (07:57→09:00)
[2018-07-15 14:32] LABS: ANION GAP 3 (5-13); BLOOD UREA NITROGEN 23 mg/dl (7-20); CALCIUM 8.1 mg/dl (8.4-10.2); CARBON DIOXIDE 20 mmol/L (21-31); CHLORIDE 129 mmol/L (97-110); CREATININE 2.97 mg/dl (0.61-1.24); Estimated GFR 24 mL/min (>60); GLUCOSE 103 mg/dl (70-220); POTASSIUM 4.2 mmol/L (3.5-5.1); SODIUM 152 mmol/L (135-144)
[2018-07-15] MEDS ORDERED: ACCU-CHEK XX (22:00)
[2018-07-16] MEDS: PIPER-TAZO 2.25 GM/NS 50 ML IVPB ×2 (00:06→06:07)
[2018-07-16] MEDS: ACCU-CHEK XX ×3 (01:10→05:12)
[2018-07-16] MEDS: D5W-0.45 NACL + KCL 10 MEQ 1,000 ML IV (02:35)
[2018-07-16 05:14] LABS: ADD MAN DIFF? NO
[2018-07-16 05:18] LABS: WHITE BLOOD COUNT 8.8 10^3/ul (4.8-10.8)
[2018-07-16 05:18] LABS: ABNORMAL IP MESSAGE 1; BASOPHILS % 0.2 % (0.0-2.0); EOSINOPHILS # 0.4 10^3/ul (0.0-0.5); EOSINOPHILS % 4.5 % (0.0-7.0); HEMATOCRIT 38.7 % (42.0-52.0); HEMOGLOBIN 12.4 g/dl (14.0-18.0); LYMPHOCYTES # 1.1 10^3/ul (0.8-2.9); LYMPHOCYTES % 12.7 % (15.0-51.0); MEAN CORPUSCULAR HEMOGLOBIN 27.2 pg (29.0-33.0); MEAN CORPUSCULAR VOLUME 84.9 fl (82.0-101.0); MONOCYTE # 0.7 10^3/ul (0.3-0.9); MONOCYTES % 7.7 % (0.0-11.0); NEUTROPHIL # 6.6 10^3/ul (1.6-7.5); NEUTROPHILS % 74.2 % (39.0-77.0); PLATELET COUNT 81 10^3/UL (140-415); POSITIVE DIFF @See below; RED BLOOD COUNT 4.56 10^6/ul (4.70-6.10); RED CELL DISTRIBUTION WIDTH 15.1 % (11.5-14.5)
[2018-07-16 05:40] LABS: ANION GAP 4 (5-13); BLOOD UREA NITROGEN 21 mg/dl (7-20); CALCIUM 8.2 mg/dl (8.4-10.2); CARBON DIOXIDE 19 mmol/L (21-31); CHLORIDE 129 mmol/L (97-110); CREATININE 2.65 mg/dl (0.61-1.24); Estimated GFR 28 mL/min (>60); GLUCOSE 114 mg/dl (70-220); SODIUM 152 mmol/L (135-144)
[2018-07-16 05:51] LABS: POTASSIUM 1.8 mmol/L (3.5-5.1)
[2018-07-16] MEDS: FAMOTIDINE 20 MG TAB GTB (06:00)
[2018-07-16] MEDS ORDERED: POTASSIUM CHLORIDE 100 ML IVPB (06:01)
[2018-07-16] MEDS: PANTOPRAZOLE 40 MG INJ IV (06:07)
[2018-07-16] MEDS: POTASSIUM CHLORIDE 100 ML IVPB ×3 (06:07→10:30)
[2018-07-16] MEDS: PHENYLephrine 80 MG in DEXTROSE 5% 242 ML IV ×2 (06:14→17:07)
[2018-07-16] MEDS: POTASSIUM PHOSPHATE 40 MEQ in SOD CHLORIDE 0.9% 250 ML IVPB (08:12)
[2018-07-16] MEDS: VASOPRESSIN 60 UNIT in DEXTROSE 5% 57 ML IV (10:30)
[2018-07-16] MEDS ORDERED: NORepinephrine 8MG/250 ML (PMX 250 ML (10:43)
[2018-07-16 11:02] LABS: AADO2 Arterial 64.2 mmHg (7.0-24.0); Allen Test ACCEPTAB; Arterial Base Excess -9.8 mmol/L (-3.0-3); Arterial Blood Gas Oxygen Sat 97.6 mmHG (95.0-98.0); Arterial COHb 0.3 % (0.0-3.0); Arterial HCO3 16.5 mmol/L (22.0-26.0); Arterial MetHb 0.3 % (0.0-1.5); Arterial pCO2 37.5 mmhg (35-45); MODE VENT - AC; Site Right Radial
[2018-07-16 11:47] LABS: AADO2 Arterial 149.8 mmHg (7.0-24.0); Allen Test ACCEPTAB; Arterial Base Excess -8.2 mmol/L (-3.0-3); Arterial Blood Gas Oxygen Sat 99.4 mmHG (95.0-98.0); Arterial COHb 0.3 % (0.0-3.0); Arterial Fraction of Oxyhgb 98.7 % (93.0-99.0); Arterial HCO3 16.4 mmol/L (22.0-26.0); Arterial MetHb 0.4 % (0.0-1.5); Arterial pCO2 31.3 mmhg (35-45); MODE VENT - AC; Site Right Radial
[2018-07-16 12:29] LABS: AADO2 Arterial 614.2 mmHg (7.0-24.0); Allen Test ACCEPTAB; Arterial Base Excess -12.5 mmol/L (-3.0-3); Arterial Blood Gas Oxygen Sat 76.9 mmHG (95.0-98.0); Arterial COHb 0.1 % (0.0-3.0); Arterial Fraction of Oxyhgb 76.4 % (93.0-99.0); Arterial MetHb 0.5 % (0.0-1.5); Arterial pCO2 52.9 mmhg (35-45); MODE NASAL CANNULA; Site Right Radial
[2018-07-16] MEDS: DEXTROSE 5% 1,000 ML IV ×2 (12:47→21:13)
[2018-07-17] MEDS: DEXTROSE 5% 1,000 ML IV ×2 (04:56→15:54)
[2018-07-17] MEDS: PHENYLephrine 80 MG in DEXTROSE 5% 242 ML IV ×2 (05:00→18:20)
[2018-07-17] MEDS: morphine 4 MG/ML VIAL IV (22:47)
[2018-07-17] MEDS: morphine (DRIP) 100 MG/100 ML 100 ML IV (22:57)
== END 2018-07-18 | disposition expired | DRG 917 ==
LOC: E/R 05:41 → ICU 06:45
PROVIDERS: Family Medicine
PROC: 02HV33Z Insertion of Infusion Device into Superior Vena Cava, Percutaneous Approach (ICD-10-PCS; principal; 2018-07-11)
PROC: 5A1955Z Respiratory Ventilation, Greater than 96 Consecutive Hours (ICD-10-PCS; 2018-07-11)
PROC: 0BH18EZ Insertion of Endotracheal Airway into Trachea, Via Natural or Artificial Opening Endoscopic (ICD-10-PCS; 2018-07-11)
PROC: 5A12012 Performance of Cardiac Output, Single, Manual (ICD-10-PCS; 2018-07-11)
DX: T40.2X1A Poisoning by other opioids, accidental (unintentional), initial encounter (principal); J96.01 Acute respiratory failure with hypoxia; G93.6 Cerebral edema; N17.0 Acute kidney failure with tubular necrosis; K72.00 Acute and subacute hepatic failure without coma; I21.A1 Myocardial infarction type 2; J96.02 Acute respiratory failure with hypercapnia; I50.31 Acute diastolic (congestive) heart failure; R57.9 Shock, unspecified; G93.1 Anoxic brain damage, not elsewhere classified; E87.4 Mixed disorder of acid-base balance; D68.9 Coagulation defect, unspecified; M62.82 Rhabdomyolysis; E87.0 Hyperosmolality and hypernatremia; I46.8 Cardiac arrest due to other underlying condition; T42.4X1A Poisoning by benzodiazepines, accidental (unintentional), initial encounter; J45.909 Unspecified asthma, uncomplicated; E87.5 Hyperkalemia; G47.33 Obstructive sleep apnea (adult) (pediatric); I49.01 Ventricular fibrillation; E87.6 Hypokalemia; Y92.009 Unspecified place in unspecified non-institutional (private) residence as the place of occurrence of the external cause; Z87.820 Personal history of traumatic brain injury
CPT/HCPCS: 31500; 36415; 36600; 70450; 71045; 71250; 74176; 76775; 78606; 80048; 80053; 80307; 81001; 81003; 82043; 82150; 82550; 82553; 82803; 82962; 83036; 83605; 83690; 83735; 83935; 84100; 84155; 84300; 84484; 85025; 85049; 85362; 85378; 85384; 85610; 85670; 85730; 86850; 86900; 86901; 87040-91; 87070; 87081; 87086; 92950; 93005; 93306; 94002; 94003; 94770; 96374; 99291-25